=== PATIENT | male | born 1985 | race Two or more races ===

== ENCOUNTER 2017-01-20 12:51 | Emergency (ER) | payer OTHER ==
[2017-01-20] MEDS ORDERED: NS 0.9% 1000 ML* 1,000 ML IV ONE (13:58)
[2017-01-20] MEDS ORDERED: clonazePAM TAB(*) 0.5 MG PO ONE (13:59)
[2017-01-20] MEDS ORDERED: Buprenorphine/Naloxone 8-2 MG SL TAB* 1 TAB PO ONE (14:41)
[2017-01-20 15:32] LABS: Hematocrit 42 % (42-52); Mean Corpuscular HGB Conc 33 g/dl (31-36); Mean Corpuscular Hemoglobin 33 pg (27-31); Mean Corpuscular Volume 99 fL (80-94); Mean Platelet Volume 10 um3 (7.4-10.4); Red Blood Count 4.23 10^6/ul (4.0-5.4); Red Cell Distribution Width 14 % (10.5-15); White Blood Count 9.1 10^3/ul (3.5-10.8)
[2017-01-20 15:45] LABS: Albumin 4.8 g/dL (3.2-5.2); BUN/Creatinine Ratio 14.8 (8-20); Calcium 9.9 mg/dL (8.6-10.3); EGFR African American 130.8 (>60); EGFR Non-African American 101.7 (>60); Potassium 4.4 mmol/L (3.5-5.0); Total Bilirubin 0.4 mg/dL (0.2-1.0); Total Protein 7.8 g/dL (6.4-8.9)
[2017-01-20 16:40] LABS: TSH (Thyroid Stimulating Horm) 0.41 mcIU/mL (0.34-5.60)
[2017-01-20] MEDS ORDERED: Acetaminophen TAB* 325 MG PO ONE (16:40)
--- NOTE | 2017-01-20 16:42 | ED ---
Alona Hidalgo SooYoung, scribed for Maverick Ellsworth MD on 01/20/17 at 1359 . Neurological HPI - HPI Summary HPI Summary: A 31 y/o M WARREN presents to ED after a witnessed sz occurring this AM. Pert PMHx : sz. His girlfriend states she caught him before he fell to the ground, did not hit his head. Pt did not take his Klonopin or Oxy last night. Klonopin is prescribed for TID, but he only takes it at night because it makes him groggy. States his L arm is sore but not out. PMHx of dislocations. - History of Current Complaint Stated Complaint: SEIZURE Time Seen by Provider: 01/20/17 13:49 Hx Obtained From: Patient, Family/Blacksmith Assistant - girlfriend Onset/Duration: Sudden Onset, Started hours ago, Resolved Pain Intensity: 0 Pain Scale Used: 0-10 Numeric - Allergy/Home Medications Allergies/Adverse Reactions: Allergies Allergy/AdvReac Type Severity Reaction Status Date / Time Tramadol Allergy Unknown Verified 05/22/16 09:39 Reaction Details Home Medications: Home Medications Amphetamine-Dextroamphetamine [Adderall 15 mg] 1 tab PO BID 01/20/17 [History Confirmed 01/20/17] Buprenorphine/Naloxone SL TAB* [Suboxone 8-2 mg SL TAB*] 0.5 tab.sl SL BID 01/20 [History Confirmed 01/20/17] clonazePAM TAB(*) [KlonoPIN TAB(*)] 0.5 mg PO BID 01/20/17 [History Confirmed ] PMH/Surg Hx/FS Hx/Imm Hx Previously Healthy: No Musculoskeletal History: Reports: Other Musculoskeletal History - shoulder dislocations Neurological History: Reports: Hx Seizures - Immunization History Date of Tetanus Vaccine: up to date Date of Influenza Vaccine: no - Family History Known Family History: Positive: None Negative: Cardiac Disease, Hypertension, Diabetes - Social History Occupation: Employed Full-time Lives: Alone Alcohol Use: Weekly Alcohol Amount: drank a little vodka tonight Hx Substance Use: Yes Substance Use Type: Reports: Marijuana Substance Use Comment - Amount & Last Used: states last smoked pot 6 months ago Hx Tobacco Use: Yes Smoking Status (MU): Heavy Every Day Tobacco Smoker Review of Systems Positive: Other - L shoulder pain Neurological: Other - pos: sz pre-arrival All Other Systems Reviewed And Are Negative: Yes Physical Exam - Summary Physical Exam Summary: Jef: well-appearing, no pain distress Skin: warm, skin color reflects, dry Head/Face: nml head/face inspection Eyes: EOMI, GERI ENT: nml Neck: supple, non-tender Resp: CTA, breath sounds present Cardio: RRR Abd: nontender, soft Bowel: present Musc: TENDERNESS AT L SHOULDER, GOOD ROM, NOT DISLOCATED Neuro: nml, sensory/motor intact, A&O x 3 Psych: affect/mood appropriate Triage Information Reviewed: Yes Vital Signs On Initial Exam: Initial Vitals Temp Pulse Resp BP Pulse Ox 98.6 F 80 20 138/78 99 01/20/17 14:06 01/20/17 14:06 01/20/17 14:06 01/20/17 14:06 01/20/17 14:06 Vital Signs Reviewed: Yes Diagnostics - Vital Signs Vital Signs Temp Pulse Resp BP Pulse Ox 01/20/17 14:06 98.6 F 80 20 138/78 99 - Laboratory Lab Results: Lab Results 01/20/17 01/20/17 01/20/17 Range/Units 14:25 14:25 14:25 WBC 9.1 (3.5-10.8) 10^3/ul RBC 4.23 (4.0-5.4) 10^6/ul Hgb 14.0 (14.0-18.0) g/dl Hct 42 (42-52) % MCV 99 H (80-94) fL MCH 33 H (27-31) pg MCHC 33 (31-36) g/dl RDW 14 (10.5-15) % Plt Count 173 (150-450) 10^3/ul MPV 10 (7.4-10.4) um3 Neut % (Auto) 81.4 (38-83) % Lymph % (Auto) 10.0 L (25-47) % Wheeler % (Auto) 6.1 (1-9) % Eos % (Auto) 1.8 (0-6) % Baso % (Auto) 0.7 (0-2) % Absolute Neuts (auto) 7.4 (1.5-7.7) 10^3/ul Absolute Lymphs (auto) 0.9 L (1.0-4.8) 10^3/ul Absolute Monos (auto) 0.6 (0-0.8) 10^3/ul Absolute Eos (auto) 0.2 (0-0.6) 10^3/ul Absolute Basos (auto) 0.1 (0-0.2) 10^3/ul Absolute Nucleated RBC 0 10^3/ul Nucleated RBC % 0 APTT 31.3 (26.0-36.3) seconds Sodium 136 (133-145) mmol/L Potassium 4.4 (3.5-5.0) mmol/L Chloride 100 L (101-111) mmol/L Carbon Dioxide 33 H (22-32) mmol/L Anion Gap 3 (2-11) mmol/L BUN 13 (6-24) mg/dL Creatinine 0.88 (0.67-1.17) mg/dL Est GFR ( Amer) 130.8 (>60) Est GFR (Non-Af Amer) 101.7 (>60) BUN/Creatinine Ratio 14.8 (8-20) Glucose 110 H (70-100) mg/dL Calcium 9.9 (8.6-10.3) mg/dL Total Bilirubin 0.40 (0.2-1.0) mg/dL AST 23 (13-39) U/L ALT 41 (7-52) U/L Alkaline Phosphatase 77 (34-104) U/L Total Protein 7.8 (6.4-8.9) g/dL Albumin 4.8 (3.2-5.2) g/dL Globulin 3.0 (2-4) g/dL Albumin/Globulin Ratio 1.6 (1-3) TSH 0.41 (0.34-5.60) mcIU/mL Result Diagrams: 01/20/17 14:25 01/20/17 14:25 Lab Statement: Any lab studies that have been ordered have been reviewed, and results considered in the medical decision making process. Course/Dx - Course Assessment/Plan: WELL IN ED. DISCHARGE HOME STABLE. - Diagnoses Provider Diagnoses: Seizure Discharge - Discharge Plan Condition: Stable Disposition: HOME Patient Education Materials: Recurrent Seizures in Adults (ED) Referrals: [facility] [Outside] Additional Instructions: FOLLOW UP WITH YOUR DOCTOR. RETURN TO THE EMERGENCY DEPARTMENT FOR ANY WORSENING OF YOUR CONDITION OR QUESTIONS OR CONCERNS. The documentation as recorded by the Alona benavides SooYoung accurately reflects the service I personally performed and the decisions made by me, Maverick Ellsworth MD.
[2017-01-20 16:55] VITALS: BP 128/70
== END 2017-01-20 16:54 | disposition home or self-care (01) ==
LOC: ED 12:51
DX: G40.909 Epilepsy, unspecified, not intractable, without status epilepticus (principal); Z72.0 Tobacco use
CPT/HCPCS: 36415; 80053; 84443; 85025; 85730; 96360; 99283; A9270-GY